=== PATIENT | female | born 1950 | race Caucasian/White ===

== ENCOUNTER 2017-08-30 07:09 | Day surgery (SDC) | payer OTHER ==
[~2017-08-30] VITALS: Ht 162.6 cm; Wt 80.0 kg
[2017-08-30] VITALS (20 sets, daily range): BP systolic 130–161; BP diastolic 65–94; PULSE 60–87; RESP 14–27; Ht 162.6 cm; Wt 80.0 kg
[2017-08-30] MEDS ORDERED: ISOS30TA5 PO (08:04)
[2017-08-30] MEDS ORDERED: ASPI-664 PO (08:04)
[2017-08-30] MEDS ORDERED: GABA100C14 PO (08:05)
[2017-08-30] MEDS ORDERED: AMLO2.5T78 PO (08:06)
[2017-08-30] MEDS ORDERED: CROM10DR6 BOTH EYES (08:07)
[2017-08-30] MEDS ORDERED: METF1000 PO (08:07)
[2017-08-30] MEDS ORDERED: BISA5TAB6 PO (08:08)
[2017-08-30 08:56] LABS: BASOPHILS % 0.2 % (0.0-2.0); EOSINOPHILS # 0.1 10^3/ul (0.0-0.5); EOSINOPHILS % 2.2 % (0.0-7.0); HEMATOCRIT 40.5 % (37.0-47.0); HEMOGLOBIN 13.1 g/dl (12.0-16.0); LYMPHOCYTES # 0.9 10^3/ul (0.8-2.9); LYMPHOCYTES % 22.1 % (15.0-51.0); MEAN CORPUSCULAR HEMOGLOBIN 28.9 pg (29.0-33.0); MEAN CORPUSCULAR HGB CONC 32.3 g/dl (32.0-37.0); MEAN CORPUSCULAR VOLUME 89.4 fl (82.0-101.0); MEAN PLATELET VOLUME 9.7 fl (7.4-10.4); MONOCYTE # 0.4 10^3/ul (0.3-0.9); MONOCYTES % 9.1 % (0.0-11.0); NEUTROPHIL # 2.7 10^3/ul (1.6-7.5); NEUTROPHILS % 66.2 % (39.0-77.0); PLATELET COUNT 240 10^3/UL (140-415); RED BLOOD COUNT 4.53 10^6/ul (4.20-5.40); RED CELL DISTRIBUTION WIDTH 12.5 % (11.5-14.5); WHITE BLOOD COUNT 4.1 10^3/ul (4.8-10.8)
[2017-08-30 09:01] LABS: INR 0.99; PROTIME 13.1 Sec (12.2-14.2)
[2017-08-30 09:02] LABS: PARTIAL THROMBOPLASTIN TIME 27.3 Sec (25.0-35.0)
[2017-08-30 09:04] LABS: ALBUMIN 4.3 g/dl (3.3-4.9); ALBUMIN/GLOBULIN RATIO 1.1; BILIRUBIN,INDIRECT 0.9 mg/dl (0-1.1); BILIRUBIN,TOTAL 0.9 mg/dl (0.2-1.3); TOTAL PROTEIN 8.2 g/dl (6.1-8.1)
[2017-08-30 09:05] LABS: CALCIUM 9.9 mg/dl (8.4-10.2); CREATININE 0.62 mg/dl (0.44-1.00); POTASSIUM 3.8 mmol/L (3.5-5.1)
[2017-08-30 09:09] LABS: HOLD TRANSMISSIONS 1
[2017-08-30] MEDS ORDERED: NITROGLYCERIN (IC) 100 MCG/ML INJ ONE (10:32)
[2017-08-30] MEDS ORDERED: FENTAnyl 50 MCG/ML VIAL ONE (10:32)
[2017-08-30] MEDS ORDERED: VERAPAMIL 5 MG INJ ONE (10:32)
[2017-08-30] MEDS ORDERED: LIDOCAINE 1% (MDV) 20 ML INJ ONE (10:32)
[2017-08-30] MEDS ORDERED: HEPARIN 1000 UNITS/ML 10 ML INJ ONE (10:32)
[2017-08-30] MEDS ORDERED: MIDAZOLAM 1 MG/ML 2 ML INJ ONE (10:32)
[2017-08-30] MEDS ORDERED: IODIXANOL LOCM 100 ML BTL ONE (10:32)
[2017-08-30] MEDS ORDERED: SOD CHLORIDE 0.9% 1,000 ML IV SCH (11:48)
--- NOTE | 2017-08-30 11:57 | OPR ---
Date/Time of Note Date/Time of Note DATE: 08/30/17 TIME: 11:49 Operative Report Procedure Date: Aug 30, 2017 Preoperative Diagnosis Cardiomyopathy Abnormal stress test Postoperative Diagnosis Severe cardiomyopathy Coronary artery disease Operation/Procedure Performed Left heart catheterization Right and left coronary angiogram Interpretation and supervision of right and left coronary angiogram Left ventricular pressure measurements and left ventriculogram Conscious sedation Right radial artery approach Surgeon see signature line Case Management Coordinator none Anesthesia Type: other (Conscious sedation) Estimated Blood Loss: minimal Transfusion none Specimen None Grafts/Implants none Complications none Pt Condition Post Procedure: stable Procedure Description Findings Hemodynamics LV pressure 160/7 with EDP of 13 Aortic on pullback 160/90 Fluoroscopy Left main is a large caliber vessel with no significant disease. LAD is a medium to large caliber vessel with a mid 20% stenosis and distal 20% stenosis. First diagonal is a small to medium caliber vessel with ostial 80% stenosis Circumflex a medium caliber vessel with mid circumflex with 30% stenosis. First obtuse marginal is a medium caliber vessel with mid 20% stenosis. RCA is a large caliber vessel and dominant with a proximal 20% diffuse stenosis , mid 10% stenosis. Left ventriculogram demonstrated global decreased systolic function with ejection fraction of 30% Description of procedure Patient brought to the Manager Transfer after informed consent. Patient was prepped and draped as per protocol. Right radial artery access was obtained in a 5/6 Mauritanian sheath was placed in the right radial artery. Initially was a 5 Mauritanian [place] catheter but could not engage the left main well. We engaged the RCA and angiogram was performed. Next was a 5 Mauritanian JL 4 catheter and engage the left main and antrum was performed. We next used a 5 Mauritanian pigtail catheter across the aortic valve into the left ventricle and ventriculogram was performed as well as pullback. Pressures were obtained as well. Patient with nuclear study demonstrating infarct in the anterior territory. On review of angiogram, LAD with no significant disease except for the diagnoses mentioned above. Given LEENA-3 flow in the diagonal and it being ostial lesion, as well as no evidence of ischemia on nuclear cardiac perfusion study, I do believe the risks of intervention of the ostium of the diagonal which could possibly jeopardize the LAD outweighs the benefits. All catheters and wires removed. There is no immediate complications. The findings were discussed with the patient via language line tool and cutter grinder and all questions were answered. Zac Man DO Aug 30, 2017 11:56
--- NOTE | 2017-08-30 11:58 | PDOCDIS ---
Discharge Instructions CONDITION Patient Condition: Good HOME CARE INSTRUCTIONS: Diet Instructions: Low Fat /Cholesterol ACTIVITY: Activity Restrictions: Slowly Increase Activity Avoid heavy lifting (Do not lift more than 5 pounds with right wrist 3 days) Do not Drive (1 day) OTHER ORDERS: Other Orders: Hold metformin until 09/02/2017 Zac Man DO Aug 30, 2017 11:58
[2017-08-30] MEDS ORDERED: AL HYDROX/MG HYDROX/SIMETH 30 ML CUP PO PRN (12:00)
[2017-08-30] MEDS ORDERED: ONDANSETRON 4 MG INJ IV PRN (12:00)
[2017-08-30] MEDS ORDERED: ACETAMINOPHEN 325 MG TAB PO PRN (12:00)
--- NOTE | 2017-08-30 12:00 | EN ---
Date/Time of Note Date/Time of Note DATE: 08/30/17 TIME: 11:59 Event Note Cardiology Cardiology Event Note Using Niuean language line inorganic chemist, findings of cardiac catheterization discussed with the patient and questions were answered. We did discuss no driving for 24 hours, holding metformin until 09/02/2017, activity restrictions with right wrist. Patient to follow-up with our electrophysiology colleague Dr Thorpe. Zac Man DO Aug 30, 2017 12:00
[2017-08-30] MEDS ORDERED: AMLODIPINE 5 MG TAB PO ONE (12:30)
--- NOTE | 2017-09-01 18:28 | RADRPT ---
Vent Rate: 61 bpm RR Interval: 0 msec AR Interval: 0 msec QRS Duration: 222 msec QT Interval: 518 msec QTC Interval: 521 msec P-R-T [place]: 0 - -41 - 102 degrees Electronic ventricular pacemaker Electronically Signed By: Jomar Carrasquillo [id number]
== END 2017-08-30 16:30 | disposition home or self-care (01) ==
LOC: SDS 07:09
PROVIDERS: ATTEND Internal Medicine Cardiovascular Disease
DX: I42.9 Cardiomyopathy, unspecified (principal); I25.10 Atherosclerotic heart disease of native coronary artery without angina pectoris; Z95.0 Presence of cardiac pacemaker; I48.91 Unspecified atrial fibrillation
CPT/HCPCS: 80053; 82962; 85025; 85610; 85730; 93005; 93458; C1887; J1644; J2250; J3010; Q9967; Z7610

== ENCOUNTER 2017-10-13 09:13 | Inpatient (IN) | payer OTHER ==
[~2017-10-13] VITALS: Ht 160 cm; Wt 81.7 kg
[2017-10-13] VITALS (15 sets, daily range): BP systolic 116–164; BP diastolic 74–92; PULSE 63–71; RESP 17–26; Ht 160 cm; Wt 81.7 kg
[~2017-10-13 09:13] MED LIST: AMLO2.5T78 PO; ASPI-664 PO; BISA5TAB6 PO; CROM10DR6 BOTH EYES; GABA100C14 PO; ISOS30TA5 PO
[2017-10-13] MEDS ORDERED: METF1000 PO (10:16)
[2017-10-13] MEDS ORDERED: CARV6.2579 PO (10:17)
[2017-10-13] MEDS ORDERED: LISI10TA2 PO (10:18)
[2017-10-13] MEDS ORDERED: POLYMYXIN/BACITRACIN 1L IRRIG IRR ONE (10:30)
[2017-10-13] MEDS ORDERED: LIDOCAINE 1% (MDV) 20 ML INJ ONE (11:29)
[2017-10-13] MEDS ORDERED: IODIXANOL LOCM 50 ML BTL ONE (11:29)
[2017-10-13] MEDS ORDERED: PROPOFOL 20 ML ONE ×3 (11:51→14:28)
[2017-10-13] MEDS ORDERED: FENTAnyl 50 MCG/ML VIAL ONE (11:51)
[2017-10-13 11:55] LABS: ALBUMIN 4.5 g/dl (3.3-4.9); ALBUMIN/GLOBULIN RATIO 1.4; BILIRUBIN,INDIRECT 0.6 mg/dl (0-1.1); BILIRUBIN,TOTAL 0.6 mg/dl (0.2-1.3); TOTAL PROTEIN 7.7 g/dl (6.1-8.1)
[2017-10-13 12:01] LABS: CALCIUM 9.7 mg/dl (8.4-10.2); CREATININE 0.62 mg/dl (0.44-1.00); POTASSIUM 4.3 mmol/L (3.5-5.1)
[2017-10-13 12:24] LABS: BASOPHILS % 0.2 % (0.0-2.0); EOSINOPHILS # 0.1 10^3/ul (0.0-0.5); EOSINOPHILS % 2.6 % (0.0-7.0); HEMATOCRIT 36.9 % (37.0-47.0); HEMOGLOBIN 12.2 g/dl (12.0-16.0); LYMPHOCYTES # 1.2 10^3/ul (0.8-2.9); LYMPHOCYTES % 26.9 % (15.0-51.0); MEAN CORPUSCULAR HEMOGLOBIN 29.6 pg (29.0-33.0); MEAN CORPUSCULAR HGB CONC 33.1 g/dl (32.0-37.0); MEAN CORPUSCULAR VOLUME 89.6 fl (82.0-101.0); MEAN PLATELET VOLUME 9.7 fl (7.4-10.4); MONOCYTE # 0.3 10^3/ul (0.3-0.9); MONOCYTES % 7.9 % (0.0-11.0); NEUTROPHIL # 2.7 10^3/ul (1.6-7.5); NEUTROPHILS % 62.2 % (39.0-77.0); PLATELET COUNT 225 10^3/UL (140-415); RED BLOOD COUNT 4.12 10^6/ul (4.20-5.40); RED CELL DISTRIBUTION WIDTH 12.4 % (11.5-14.5)
[2017-10-13 12:25] LABS: HOLD TRANSMISSIONS 1
[2017-10-13 12:27] LABS: WHITE BLOOD COUNT 4.3 10^3/ul (4.8-10.8)
[2017-10-13 12:28] LABS: PROTIME 13.2 Sec (12.2-14.2)
[2017-10-13 12:29] LABS: PARTIAL THROMBOPLASTIN TIME 26.5 Sec (25.0-35.0)
[2017-10-13] MEDS ORDERED: EPHEDrine SULFATE 50 MG/5 ML SYG ONE (13:36)
[2017-10-13] MEDS ORDERED: LIDOCAINE 2% (SDV) 5 ML INJ ONE (13:37)
[2017-10-13] MEDS ORDERED: HEPARIN 1000 UNITS/NS (A-LINE) 1,000 ML ONE (13:55)
[2017-10-13] MEDS ORDERED: THROMBIN 5000 UNIT VIAL ONE (14:41)
[2017-10-13] MEDS ORDERED: HOLD all METFORMIN and METFORMIN CONTAINING medications for 48 hours post procedure. Chec XX ONE (15:00)
--- NOTE | 2017-10-13 15:05 | SIPON ---
Date/Time of Note Date/Time of Note DATE: 10/13/17 TIME: 15:04 Operative Report Preoperative Diagnosis chf cmp Postoperative Diagnosis same Operation/Procedure Performed upgrade of single chamber pacemaker to Biventricular ICD Surgeon see signature line account assistant none Anesthesia: MAC Estimated blood loss: 10 - 50 ml's Transfusion Required none Specimen pacemaker generator Grafts/Implants none Complications none REAL MCMAHON MD Oct 13, 2017 15:05
--- NOTE | 2017-10-13 15:50 | RADRPT ---
PROCEDURE: Chest radiograph CLINICAL INDICATION: Implantable cardioverter defibrillator placement. COMPARISON: Left heart catheterization from 08/30/2017. TECHNIQUE: Single frontal chest radiograph. FINDINGS: Implantable cardioverter defibrillator in the left chest with leads in the right ventricle and epica rdial left ventricle. The lungs are clear. No pleural effusion or focal parenchymal opacity. Cardiomegaly. No suspicious bone lesion. IMPRESSION: 1. Two lead bi-ventricular implantable cardioverter defibrillator. 2. Cardiomegaly. RPTAT: PP Physician Nolvia Date Time Electronically viewed and signed by Physician Nolvia on 10/13/2017 15:49 LG/
[2017-10-13] MEDS ORDERED: GLUCOSE GEL 15 GRAM TUBE PO PRN ×2 (16:00)
[2017-10-13] MEDS ORDERED: GLUCOSE GEL 15 GRAM TUBE BUCCAL PRN (16:00)
[2017-10-13] MEDS ORDERED: DEXTROSE 50% 50 ML SYRINGE IV PRN ×2 (16:00)
[2017-10-13] MEDS ORDERED: GLUCAGON 1 MG INJ IM PRN (16:00)
[2017-10-13] MEDS: ISOSORBIDE MONONITRATE(SR)30 MG TAB PO SCH (18:08)
[2017-10-13] MEDS: metFORMIN 500 MG TAB PO SCH (18:08)
[2017-10-13] MEDS: LISINOPRIL 10 MG TAB PO SCH (18:09)
--- NOTE | 2017-10-13 18:37 | OPR ---
DATE OF OPERATION: Ms. Ba presented with a history of a pacemaker, cardiomyopathy and CHF. She presents for upgra de to biventricular implantable cardioverter-defibrillator. PREOPERATIVE DIAGNOSES: 1. Cardiomyopathy. 2. Congestive heart failure. 3. Pacemaker in situ. POSTOPERATIVE DIAGNOSES: 1. Cardiomyopathy. 2. Congestive heart failure. 3. Pacemaker in situ. PROCEDURE PERFORMED: Upgrade of single-chamber pacemaker to biventricular implantable cardioverter- defibrillator. DESCRIPTION OF PROCEDURE: The patient was brought to the catheterization laboratory in a fasting st ate. Informed consent was signed for the procedure and sedation. The patient was given antibiotics prior to skin incision. The patient was sedated with the assistance of anesthesiology. Right groin was prepped in the usual fashion. A single 5-Gabonese venous access was obtained and a te mporary pacemaker was placed. Left pectoral region was then prepped and draped in the usual fashion. A 4 cm incision was made usi ng a #15 scalpel blade. The previously placed pacemaker was removed from the pocket. It was unipolar. Two venous accesses were obtained under fluoroscopic guidance after a venogram was performed. Over a guidewire, a 7-Gabonese sheath was placed in the subclavian vein, through which a [employer] ICD lead was passed to the mid RV septum where excellent pacing and sensing characteristics were confirmed. The lead was screwed into place. The sheath was slit and the lead was sutured to the f ascia using 0 silk nonabsorbable sutures. Over a second wire, a CS extended hook guide catheter was placed. A CSL as well as a deflectable de capolar catheter was attempted; however, the CS was ultimately accessed using an AL2 inner catheter with a Glidewire. The sheath was advanced to the coronary sinus. Occlusive and nonocclusive venogr ams were performed. There were poor lead choices; however, there was a posterolateral branch that w as identified and the lead was advanced over a Whisper EDS wire to the lateral wall. The sheath was slit in the usual fashion. The LV lead was sutured to the fascia using 0 silk nonabs orbable sutures. The leads were placed into the new defibrillator. The patient is in permanent atr ial fibrillation and the atrial port was plugged. The previous pacemaker lead was detached from the pacemaker. A lead cap was placed and it was sutur ed to the fascia. The [employer] ICD was placed in the pocket. The pocket was irrigated. The pocket was closed in layers using 2-0 and 4-0 absorbable sutures. Surgical adhesive was applied to the skin. Fertilizer Loader is [employer], serial number [id number]. RV lead [employer] Durata, serial num aida [id number]. Left ventricular lead [employer], serial number [id number]. Dictated By: REAL MCMAHON MD MW/NTS Conf#: [id number] DID#: [id number] CC: REAL MCMAHON MD;*EndCC*
[2017-10-13] MEDS ORDERED: KETOROLAC 30 MG INJ IV ONE (22:00)
[2017-10-13] MEDS: CEFAZOLIN 1 GM/50 ML (PMX) 50 ML IVPB SCH (22:02)
[2017-10-13] MEDS: ACETAMINOPHEN 325 MG TAB PO PRN (22:09)
--- NOTE | 2017-10-13 22:47 | HP ---
DATE OF ADMISSION: 10/13/2017 CHIEF COMPLAINT: Status post ICD placement. HISTORY OF PRESENT ILLNESS: This is a 67-year-old female with a past medical history of hypertensio n, history of diabetes, history of arrhythmia, history of CHF, who presents to [facility] to undergo elective ICD placement. The patient has been seen by her outpatient tear down matcher and determination was made for the patient to upgrade her pacemaker to ICD placement due to underly ing CHF. The patient underwent placement by Dr. Mcmahon. The patient had no intraoperative complic ations. Postoperatively, the patient was transferred to telemetry bed. Currently, upon my evaluation of the patient at this time, she is currently stable, denies any fever s, chills, nausea, vomiting, shortness of breath. PAST MEDICAL HISTORY: History of hypertension, history of diabetes, history of CHF, history of arrh ythmia. PAST SURGICAL HISTORY: Status post pacemaker placement. FAMILY HISTORY: Noncontributory. SOCIAL HISTORY: Does not drink, smoke or do drugs. MEDICATIONS: The patient's medications have been reviewed and reconciled. ALLERGIES: NO KNOWN DRUG ALLERGIES. REVIEW OF SYSTEMS: A 14-point review of systems was conducted. Pertinent positives stated in HPI, otherwise negative. PHYSICAL EXAMINATION: VITAL SIGNS: Blood pressure is 139/83, respirations 17, pulse 78, temperature 98.1. HEENT: Head is normocephalic. NECK: Supple. HEART: Regular rate. LUNGS: Show diminished breath sounds at the base. CHEST: The patient has a dressing over her left chest which is clean, dry, and intact. ABDOMEN: Soft, nontender to palpation without rebound or guarding. EXTREMITIES: Negative for clubbing, cyanosis. No edema. DERMATOLOGIC: No rashes. MUSCULOSKELETAL: No joint effusions. NEUROLOGIC: No focal deficits. LABORATORY DATA: Shows INR 1.0, a BMP, LFT within normal limits, a white count of 4.3, hemoglobin 1 0.2 and platelet count is 225. Also, chest x-ray shows 2-lead biventricular implantable ICD device. ASSESSMENT AND PLAN: This is a 67-year-old female who presents with: 1. Congestive heart failure. The patient is status post ICD placement. Plan at this point is to o bserve overnight and we will continue pain control, we will monitor closely. Follow up with cardiol piter. 2. History of chronic congestive heart failure. The patient is currently compensated. Continue me dical management. 3. Hypertension. Continue current blood pressure regimen. 4. Diabetes. Continue Accu-Cheks and insulin sliding scale. 5. Mild leukopenia. Continue to monitor. 6. Gastrointestinal and DVT prophylaxis, we will continue PPI and sequential leg squeezers. Please note I spent up to 25 minutes metk-ma-rlif time with the patient. The patient is FULL CODE. Dictated By: ROSS LIMON DO NR/NTS Conf#: [id number] DID#: [id number] CC: REAL MCMAHON MD;*EndCC*
[2017-10-14] VITALS (9 sets, daily range): BP systolic 103–115; BP diastolic 64–70; PULSE 69; RESP 16–18
[2017-10-14] MEDS: ACETAMINOPHEN 325 MG TAB PO PRN (06:29)
[2017-10-14] MEDS: CEFAZOLIN 1 GM/50 ML (PMX) 50 ML IVPB SCH ×2 (06:29→14:30)
--- NOTE | 2017-10-14 08:12 | CONS ---
Date/Time of Note Date/Time of Note DATE: 10/14/17 TIME: 08:10 Assessment/Plan Assessment/Plan Chief Complaint/Hosp Course 1. CHF systolic and diastolic chronic 2. ICD implantation 3. Hypertension. Problems: Additional Assessment/Plan 1) continue current management 2) ok to dc from cardiac perspective if ok w PCP Consultation Date/Type/Reason Admit Date/Time Oct 13, 2017 at 15:03 Initial Consult Date Type of Consultation: cv Reason for Consultation cardiomyopathy 24 HR Interval Summary Free Text/Dictation no chest pain, mild soreness at insertion site, no syncope, no palpitations, no sob Detailed Summary Respiratory: no complaints Cardiovascular: no complaints Gastrointestinal: no complaints Musculoskeletal: no complaints Skin: no complaints Neurologic: no complaints Endocrine: no complaints Lymphatic: no complaints Exam/Review of Systems Vital Signs Vitals Vital Signs Date Time Temp Pulse Resp B/P Pulse Ox O2 Delivery O2 Flow Rate FiO2 10/14/17 08:05 98.3 72 18 112/67 94 10/13/17 16:40 Room Air Intake and Output 10/13/17 10/13/17 10/14/17 14:59 22:59 06:59 Intake Total 200 ml Balance 200 ml Exam Constitutional: alert, oriented Head: atraumatic, normocephalic Neck: supple Respiratory: clear to auscultation Cardiovascular: regular rate and rhythm Gastrointestinal: soft Musculoskeletal: nl extremities to inspection Extremities: normal pulses Neurological: LEATHER TOOLER II-XII intact Results Result Diagram: 10/13/17 1153 10/13/17 1020 Results 24 hrs Laboratory Tests Test 10/13/17 10:20 10/13/17 10:26 10/13/17 11:53 10/13/17 16:05 Sodium Level 143 Potassium Level 4.3 Chloride Level 107 Carbon Dioxide Level 26 Anion Gap 14 Blood Urea Nitrogen 14 Creatinine 0.62 Glucose Level 104 Calcium Level 9.7 Total Bilirubin 0.6 Direct Bilirubin 0.00 Indirect Bilirubin 0.6 Aspartate Amino Transf (AST/SGOT) 26 Alanine Aminotransferase (ALT/SGPT) 38 Alkaline Phosphatase 75 Total Protein 7.7 Albumin 4.5 Globulin 3.20 Albumin/Globulin Ratio 1.40 Bedside Glucose 99 81 White Blood Count 4.3 L Red Blood Count 4.12 L Hemoglobin 12.2 Hematocrit 36.9 L Mean Corpuscular Volume 89.6 Mean Corpuscular Hemoglobin 29.6 Mean Corpuscular Hemoglobin Concent 33.1 Red Cell Distribution Width 12.4 Platelet Count 225 Mean Platelet Volume 9.7 Neutrophils % 62.2 Lymphocytes % 26.9 Monocytes % 7.9 Eosinophils % 2.6 Basophils % 0.2 Nucleated Red Blood Cells % 0.0 Neutrophils # 2.7 Lymphocytes # 1.2 Monocytes # 0.3 Eosinophils # 0.1 Basophils # 0.0 Nucleated Red Blood Cells # 0.0 CBC Results Faxed/Phoned 1 *H Prothrombin Time 13.2 Prothrombin Time Ratio 1.0 INR International Normalized Ratio 1.00 Activated Partial Thromboplast Time 26.5 Medications Medications Current Medications Cefazolin Sodium (Ancef 1 Gm/50 ml (Pmx)) 50 ml @ 100 mls/hr Q8 IVPB Last administered on 10/14/17 06:29; Admin Dose 100 MLS/HR; Start 10/13/17 at 22:00 Amlodipine Besylate (Norvasc) 2.5 mg DAILY PO ; Start 10/14/17 at 09:00 Aspirin (Halfprin) 81 mg DAILY PO ; Start 10/14/17 at 09:00 Bisacodyl (Dulcolax) 5 mg DAILY PO ; Start 10/14/17 at 09:00 Carvedilol (Coreg) 6.25 mg BID PO Last administered on 10/13/17 20:15; Admin Dose 6.25 MG; Start 10/13/17 at 21:00 Isosorbide Mononitrate (Imdur) 30 mg DAILY PO Last administered on 10/13/17 18:08; Admin Dose 30 MG; Start 10/13/17 at 15:00 Lisinopril (Zestril) 10 mg DAILY PO Last administered on 10/13/17 18:09; Admin Dose 10 MG; Start 10/13/17 at 15:00 Miscellaneous Information 1 drop QAM XX ; Start 10/16/17 at 09:00 Miscellaneous Information 1 ea NOTE XX ; Start 10/13/17 at 16:00 Glucose (Glutose) 15 gm Q15M PRN PO DECREASED GLUCOSE; Start 10/13/17 at 16:00 Glucose (Glutose) 22.5 gm Q15M PRN PO DECREASED GLUCOSE; Start 10/13/17 at 16: 00 Dextrose (D50w Syringe) 25 ml Q15M PRN IV DECREASED GLUCOSE; Start 10/13/17 at 16:00 Dextrose (D50w Syringe) 50 ml Q15M PRN IV DECREASED GLUCOSE; Start 10/13/17 at 16:00 Glucagon (Glucagen) 1 mg Q15M PRN IM DECREASED GLUCOSE; Start 10/13/17 at 16: 00 Glucose (Glutose) 15 gm Q15M PRN BUCCAL DECREASED GLUCOSE; Start 10/13/17 at 16:00 Influenza Virus Vaccine (Fluzone) 0.5 ml ONCE ONCE IM* ; Start 10/14/17 at 11:00 ; Stop 10/14/17 at 11:01 Acetaminophen (Tylenol Tab) 650 mg Q4H PRN PO PAIN AND OR ELEVATED TEMP Last administered on 10/14/17t 06:29; Admin Dose 650 MG; Start 10/13/17 at 22:00 ARMANDO MARTINEZ MD Oct 14, 2017 08:12
[2017-10-14] MEDS ORDERED: AMLODIPINE 2.5 MG TAB PO SCH (09:00)
[2017-10-14] MEDS ORDERED: BISACODYL (EC) 5 MG TAB PO SCH (09:00)
[2017-10-14] MEDS ORDERED: ASPIRIN (EC) 81 MG TAB PO SCH (09:00)
[2017-10-14] MEDS: LISINOPRIL 10 MG TAB PO SCH (09:29)
[2017-10-14] MEDS: metFORMIN 500 MG TAB PO SCH (09:30)
[2017-10-14] MEDS: ISOSORBIDE MONONITRATE(SR)30 MG TAB PO SCH (09:30)
[2017-10-14] MEDS ORDERED: INFLUENZA VIRUS VACCINE 0.5 ML SYG IM* ONE (11:00)
--- NOTE | 2017-10-14 12:20 | DS ---
DATE OF ADMISSION: 10/13/2017 DATE OF DISCHARGE: 10/14/2017 HOSPITAL COURSE: This is a 67-year-old female with a past medical history of hypertension, diabetes , arrhythmia, CHF, who presented to [facility] and underwent elective ICD placemen t. The patient, following the procedure was admitted to telemetry where she was noted to be stable overnight. The patient currently is in no distress, has no active pain. We will plan for her to be discharged home and follow up with her primary sueding and buffing machine operator, Dr. Thorpe, in 1-2 days. The patient 's other medical problems include hypertension, diabetes were stable during the hospital course. Please note at time of discharge, the patient is stable, in no acute distress. FINAL DIAGNOSES: 1. History of congestive heart failure. The patient currently compensated. 2. Status post implantable cardioverter defibrillator placement. 3. Hypertension. 4. Diabetes. 5. Mild leukopenia. Please note, I discussed the case with the patient's daughter, Jade, instructing her on care of her mother and to follow up with her primary sueding and buffing machine operator in 1 week's time. FINAL MEDICATIONS: The patient will continue her home regimen of: 1. Amlodipine. 2. Aspirin. 3. Coreg. 4. Lisinopril. 5. Metformin. Please note I spent over 40 minutes of time preparing patient's discharge. Dictated By: ROSS GARCIA/WESLEY Conf#: [id number] DID#: [id number]
[2017-10-16] MEDS ORDERED: CROMOLYN SODIUM XX SCH (09:00)
== END 2017-10-14 16:56 | disposition home or self-care (01) | DRG 227 ==
LOC: SDS 09:13 → REC 15:03 → MS4 16:38
PROVIDERS: ADMIT Internal Medicine Cardiovascular Disease; ATTEND Internal Medicine Cardiovascular Disease
PROC: 02HK3KZ Insertion of Defibrillator Lead into Right Ventricle, Percutaneous Approach (ICD-10-PCS; 2017-10-13)
PROC: 02H43KZ Insertion of Defibrillator Lead into Coronary Vein, Percutaneous Approach (ICD-10-PCS; 2017-10-13)
PROC: 02PA3MZ Removal of Cardiac Lead from Heart, Percutaneous Approach (ICD-10-PCS; 2017-10-13)
PROC: 0JPT0PZ Removal of Cardiac Rhythm Related Device from Trunk Subcutaneous Tissue and Fascia, Open Approach (ICD-10-PCS; principal; 2017-10-13 11:00)
PROC: 0JH608Z Insertion of Defibrillator Generator into Chest Subcutaneous Tissue and Fascia, Open Approach (ICD-10-PCS; 2017-10-13 11:00)
DX: I11.0 Hypertensive heart disease with heart failure (principal); I42.9 Cardiomyopathy, unspecified; E11.9 Type 2 diabetes mellitus without complications; I50.42 Chronic combined systolic (congestive) and diastolic (congestive) heart failure; D72.819 Decreased white blood cell count, unspecified
CPT/HCPCS: 33225; 33233; 33249; 71010; 80053; 82962; 85025; 85610; 85730; 90686; C1882; C1895; C1900; J0690; J1644; J1885; J3010; Q9967